=== PATIENT | female | born 1940 | race Caucasian/White ===

== ENCOUNTER 2017-02-24 11:21 | Inpatient (IN) | payer MEDICARE, BC ==
[2017-02-24] MEDS ORDERED: Ondansetron 4 MG Tab.DIS PO PRN (16:00)
[2017-02-24] MEDS ORDERED: Polyvinyl Alcohol 1.4% Ophth Soln 15 ML Bottle EYEBOTH PRN (16:00)
--- NOTE | 2017-02-24 16:28 | PCM.HP ---
H&P History of Present Illness - General Date of Service: 02/24/17 Admit Problem/Dx: Admission Diagnosis/Problem Admission Diagnosis/Problem Spondylolisthesis Source of Information: Patient, EMS History Limitations: Reports: No Limitations - History of Present Illness Initial Comments - Free Text/Narative: Patient had L4-S1 posterior lumbar interbody fusion with Dimas Vazquez osteotomies for a known diagnosis of spondylolistheses of lumbar region. Patient had a durotomy during surgery and no problems withe the wound. Incision is dry and intact. Location: Reports: Back Quality: Reports: Sharp Severity: Moderate Improves with: Reports: Immobilization, Medication - Related Data Allergies/Adverse Reactions: Allergies Allergy/AdvReac Type Severity Reaction Status Date / Time No Known Allergies Allergy Verified 02/24/17 12:42 Home Medications: Home Meds Acetaminophen 1,000 mg PO Q4H PRN 02/24/17 [History] Aspirin [Halfprin] 81 mg PO QPM 02/24/17 [History] Calcium Carbonate/Vitamin D3 [Calcium 600-Vit D3 400 Tablet] 2 tab PO DAILY 08/31 [History] Cyanocobalamin (Vitamin B12) [Vitamin B12] 1,000 mcg IM ASDIRECTED 02/24/17 [ History] Diazepam [Valium] 5 mg PO TID 02/24/17 [History] Docusate Sodium [Colace] 100 mg PO BID 02/24/17 [History] Flaxseed Oil [Flaxseed] 1,000 mg PO DAILY 02/24/17 [History] Glucosamine/Chondro Gatica A [Glucosamine-Chondroitin Tab] 1 each PO DAILY 02/24/17 [History] Krill/Om-3/DHA/EPA/Phospho/Ast [Krill Oil 1,000 mg Softgel] 1 each PO DAILY 08/31 [History] Levothyroxine 175 mcg PO ACBRK 02/24/17 [History] PEG 400/Hypromellose/Glycerin [Artificial Tears Drops] 1 drop EYEBOTH Q6H PRN [History] Pregabalin [Lyrica] 75 mg PO BID 02/24/17 [History] Ubidecarenone [Co Q-10] 100 mg PO DAILY 02/24/17 [History] cycloSPORINE [Restasis] 1 drop EYEBOTH BID 02/24/17 [History] oxyCODONE HCl [Oxycodone HCl] 10 mg PO Q4H PRN 02/24/17 [History] Past Medical History Other HEENT History: dry eye syndrome, migraines Cardiovascular History: Reports: Heart Murmur, Other (See Below) (hyperlipidemia ) Musculoskeletal History: Reports: Fibromyalgia, Osteoarthritis Endocrine/Metabolic History: Reports: Hypothyroidism Hematologic History: Reports: B12 Deficiency - Past Surgical History HEENT Surgical History: Reports: Oral Surgery, Tonsillectomy Other HEENT Surgeries/Procedures: three cornea transplants, parotid gland surgery, TMG joint surgery times three with replacement GI Surgical History: Reports: Appendectomy Female Surgical History: Reports: Tubal Ligation Other Musculoskeletal Surgeries/Procedures:: left knee scope, bilat hand surgery , hip replacement, bilat carpal tunnel surgery Social & Family History - Family History Cardiac: Reports: CAD - Tobacco Use Smoking Status *Q: Never Smoker - Living Situation & Occupation Living situation: Reports: 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[employer]) H&P Review of Systems - Review of Systems: Review Of Systems: See Below General: Reports: Weakness, Fatigue HEENT: Reports: No Symptoms Pulmonary: Reports: No Symptoms Cardiovascular: Reports: No Symptoms Gastrointestinal: Reports: Constipation Genitourinary: Reports: No Symptoms Musculoskeletal: Reports: Back Pain, Muscle Pain Skin: Reports: No Symptoms Psychiatric: Reports: No Symptoms Neurological: Reports: No Symptoms Hematologic/Lymphatic: Reports: Anemia (post op anemia) Immunologic: Reports: No Symptoms Exam - Exam Exam: See Below - Exam Quality Assessment: DVT Prophylaxis General: Alert, Oriented, Cooperative HEENT: Conjunctiva Clear, EACs Clear, EOMI, Hearing Intact, Mucosa Moist & [place] , Nares Patent, Normal Nasal Septum, Posterior Pharynx Clear Neck: Supple, Trachea Midline Lungs: Clear to Auscultation, Normal Respiratory Effort Cardiovascular: Regular Rate, Regular Rhythm, Normal S1, Normal S2, Systolic Murmur Abdomen: Normal Bowel Sounds, Soft, Pelvis Stable Back Exam: Normal Inspection Extremities: Edema (trace pedal edema to bilat LE) Peripheral Pulses: 1+: Posterior Tibial (L), Posterior Tibial (R), Dorsalis Pedis (L), Dorsalis Pedis (R) Skin: Warm, Dry, Intact, Incision, Other (incision to low back dry and intact with dermabond) Neurological: Cranial Nerves Intact, Reflexes Equal Bilateral, Strength Equal Bilateral Neuro Extensive - Mental Status: Alert, Oriented x3, Normal Mood/Affect, Normal Cognition, Memory Intact Neuro Extensive - Motor, Sensory, Reflexes: Normal Gait, Normal Reflexes Psychiatric: Alert, Normal Affect, Normal Mood *Q Meaningful Use (ADM) - VTE *Q VTE Criteria *Q: - Stroke *Q Stroke Criteria *Q: - AMI *Q AMI Criteria *Q: - Problem List (1) Spondylolisthesis SNOMED Code(s): 396833625 ICD Code: M43.10 - SPONDYLOLISTHESIS, SITE UNSPECIFIED Status: Acute Qualifiers: Spinal region: lumbosacral Qualified Code(s): M43.17 - Spondylolisthesis, lumbosacral region (2) Hypothyroidism SNOMED Code(s): 55252544 ICD Code: E03.9 - HYPOTHYROIDISM, UNSPECIFIED Status: Acute Qualifiers: Hypothyroidism type: other Qualified Code(s): E03.8 - Other specified hypothyroidism Problem List Initiated/Reviewed/Updated: Yes Orders Last 24hrs: Active Orders 24 hr Category Date Time Status Patient Status [ADT] Routine ADT 02/24/17 15:31 Active Ambulate [RC] ASDIRECTED Care 02/24/17 15:31 Active Ambulate [RC] ASDIRECTED Care 02/24/17 15:31 Active Antiembolic Devices [RC] PER UNIT ROUTINE Care 02/24/17 15:35 Active Communication Order [RC] ROUTINE Care 02/24/17 16:22 Ordered Intake and Output [RC] ASDIRECTED Care 02/24/17 15:31 Active May Shower [RC] ASDIRECTED Care 02/24/17 15:31 Active Oxygen Therapy [RC] PRN Care 02/24/17 15:31 Active Up ad Jeimy [RC] ASDIRECTED Care 02/24/17 15:31 Active VTE/DVT Education [RC] PER UNIT ROUTINE Care 02/24/17 15:31 Active Vital Signs [RC] PER UNIT ROUTINE Care 02/24/17 15:31 Active Consult to Case Management [CONS] Routine Cons 02/24/17 15:31 Active OT Evaluation and Treatment [CONS] Routine Cons 02/24/17 15:31 Active PT Evaluation and Treatment [CONS] Routine Cons 02/24/17 15:31 Active Regular Diet [DIET] Diet 02/24/17 Dinner Active Acetaminophen [Tylenol Extra Strength] Med 02/24/17 16:18 Ordered 1,000 mg PO Q4H PRN Aspirin [Halfprin] Med 02/24/17 18:00 Ordered 81 mg PO QPM Calcium Carbonate/Vitamin D3 [Caltrate 600+D 1500 MG- Med 02/25/17 08:00 Ordered 400 Units] 2 tab PO DAILY Diazepam [Valium] Med 02/24/17 16:18 Ordered 5 mg PO TID PRN Docusate Sodium [Colace] Med 02/24/17 18:00 Ordered 100 mg PO BID Flaxseed Oil Med 02/25/17 08:00 Ordered 1,000 mg PO DAILY Glucosamine/Chondro Gatica A [Glucosamine-Chondroitin Tab] Med 02/25/17 08:00 Ordered 1 each PO DAILY Krill/Om-3/DHA/EPA/Phospho/Ast [Krill Oil 1,000 mg Med 02/25/17 08:00 Ordered Softgel] 1 each PO DAILY Levothyroxine Med 02/25/17 07:00 Ordered 175 mcg PO ACBRK Ondansetron [Zofran ODT] Med 02/24/17 16:00 Active 4 mg PO Q6H PRN PEG 400/Hypromellose/Glycerin [Artificial Tears Drops] Med 02/24/17 16:18 Ordered 1 drop EYEBOTH Q6H PRN Polyethylene Glycol 3350 [MiraLAX] Med 02/24/17 16:22 Ordered 17 gm PO BEDTIME PRN Pregabalin [Lyrica] Med 02/24/17 18:00 Ordered 75 mg PO BID Ubidecarenone [Coenzyme Q10] Med 02/25/17 08:00 Ordered 100 mg PO DAILY cycloSPORINE [Restasis] Med 02/24/17 18:00 Ordered 1 drop EYEBOTH BID oxyCODONE HCl [Oxycodone HCl] Med 02/24/17 16:18 Ordered 10 mg PO Q4H PRN Antiembolic Hose [OM.PC] Routine Oth 02/24/17 15:31 Ordered Resuscitation Status Routine Resus Stat 02/24/17 15:31 Ordered Medication Orders Acetaminophen (Tylenol Extra Strength) 1,000 mg PO Q4H PRN PRN Reason: Pain Aspirin (Halfprin) 81 mg PO QPM [facility] Calcium Carbonate (Caltrate 600+D 1500 Mg-400 Units) 2 tab PO DAILY [facility] Coenzyme Q10 (Coenzyme Q10) 100 mg PO DAILY [facility] Diazepam (Valium.) 5 mg PO TID PRN PRN Reason: Spasms Docusate Sodium (Colace) 100 mg PO BID [facility] Flaxseed (Flaxseed Oil) 1,000 mg PO DAILY [facility] Levothyroxine Sodium (Levothyroxine) 175 mcg PO ACBRK [facility] Non-Formulary Medication (Glucosamine/Chondro Gatica A [Glucosamine-Chondroitin Tab] ) 1 each PO DAILY [facility] Non-Formulary Medication (Krill/Om-3/Dha/Epa/Phospho/Ast [Krill Oil 1,000 Mg Softgel]) 1 each PO DAILY [facility] Non-Formulary Medication (Peg 400/Hypromellose/Glycerin [Artificial Tears Drops] ) 1 drop EYEBOTH Q6H PRN PRN Reason: Dry Eyes Non-Formulary Medication (Cyclosporine [Restasis]) 1 drop EYEBOTH BID [facility] Non-Formulary Medication (Oxycodone Hcl [Oxycodone Hcl]) 10 mg PO Q4H PRN PRN Reason: Pain Ondansetron HCl (Zofran Odt) 4 mg PO Q6H PRN PRN Reason: Nausea/Vomiting Polyethylene Glycol (Miralax) 17 gm PO BEDTIME PRN PRN Reason: Constipation Pregabalin (Lyrica) 75 mg PO BID [facility] Assessment/Plan Comment:: 02/24/2017 Patient is needing further PT/OT after having L4-S1 lumbar fusion on 02/18/2017. Patient continues with back spasms and pain, needing oxycodone and Valium. Patient is wearing back brace to low back when out of bed, needing assistance with ADLs. Patient plans to return to home with spouse when stronger. will continue with recommendations and medications per neurosurgery. Recheck CBC in am, patient noted to have post op anemia. Continue with follow up appointments already set up. Leny Jain,NANCY
[2017-02-24] MEDS: Docusate Sodium 100 MG Cap PO SCH (17:46)
[2017-02-24] MEDS: Aspirin 81 MG Tab.EC PO SCH (17:46)
[2017-02-24] MEDS: Pregabalin 75 MG Cap PO SCH (17:47)
[2017-02-24] MEDS: oxyCODONE 5 MG Tab PO PRN ×2 (17:48→22:23)
[2017-02-24] MEDS: Diazepam 5 MG Tab PO PRN (17:48)
[2017-02-25] MEDS: oxyCODONE 5 MG Tab PO PRN ×3 (07:53→17:34)
[2017-02-25] MEDS: Calcium Carbonate/Vitamin D3 1500 MG-400 Units Tab PO SCH (07:53)
[2017-02-25] MEDS: Chondroitin/Glucosamine Cap PO SCH (07:54)
[2017-02-25] MEDS: Docusate Sodium 100 MG Cap PO SCH ×2 (07:54→17:34)
[2017-02-25] MEDS: Pregabalin 75 MG Cap PO SCH ×2 (07:55→17:34)
[2017-02-25] MEDS: Flaxseed Oil 1,000 MG Cap PO SCH ×2 (07:58→09:47)
[2017-02-25] MEDS: CYCLOSPORINE EYEBOTH SCH ×2 (09:48→17:36)
[2017-02-25] MEDS: Acetaminophen 500 MG Tab PO PRN (11:18)
[2017-02-25] MEDS: [UNRECOGNIZED DRUG - OTHER] PO SCH (14:06)
[2017-02-25] MEDS: AST PO SCH (14:06)
[2017-02-25] MEDS: PHOSPHO PO SCH (14:06)
[2017-02-25] MEDS: KRILL PO SCH (14:06)
[2017-02-25] MEDS: DHA PO SCH (14:06)
[2017-02-25] MEDS: EPA PO SCH (14:06)
[2017-02-25] MEDS: Diazepam 5 MG Tab PO PRN (17:34)
[2017-02-25] MEDS: Polyethylene Glycol 3350 Powder 510 GM Bot PO PRN (17:34)
[2017-02-25] MEDS: Aspirin 81 MG Tab.EC PO SCH (17:37)
[2017-02-26] MEDS: oxyCODONE 5 MG Tab PO PRN ×3 (00:54→13:28)
[2017-02-26] MEDS: Diazepam 5 MG Tab PO PRN (01:49)
[2017-02-26] MEDS ORDERED: Magnesium Hydroxide 400 MG/5 ML Susp 30 ML Cup PO PRN (07:30)
[2017-02-26] MEDS: Calcium Carbonate/Vitamin D3 1500 MG-400 Units Tab PO SCH ×3 (07:57→17:22)
[2017-02-26] MEDS: AST PO SCH (07:58)
[2017-02-26] MEDS: DHA PO SCH (07:58)
[2017-02-26] MEDS: KRILL PO SCH (07:58)
[2017-02-26] MEDS: Flaxseed Oil 1,000 MG Cap PO SCH (07:58)
[2017-02-26] MEDS: PHOSPHO PO SCH (07:58)
[2017-02-26] MEDS: CYCLOSPORINE EYEBOTH SCH ×2 (07:58→17:29)
[2017-02-26] MEDS: EPA PO SCH (07:58)
[2017-02-26] MEDS: Chondroitin/Glucosamine Cap PO SCH (07:58)
[2017-02-26] MEDS: [UNRECOGNIZED DRUG - OTHER] PO SCH (07:58)
[2017-02-26] MEDS: Pregabalin 75 MG Cap PO SCH ×2 (07:59→17:30)
[2017-02-26] MEDS: Docusate Sodium 100 MG Cap PO SCH ×2 (08:01→17:28)
[2017-02-26] MEDS ORDERED: Bisacodyl 10 MG Supp RECTAL PRN (08:26)
--- NOTE | 2017-02-26 09:09 | PCM.PN ---
- General Info Date of Service: 02/26/17 Admission Dx/Problem (Free Text): Admission Diagnosis/Problem Admission Diagnosis/Problem Spondylolisthesis Functional Status: Reports: tolerating diet, ambulating - Review of Systems General: Reports: Weakness, Fatigue HEENT: Reports: no symptoms Pulmonary: Reports: no symptoms Cardiovascular: Reports: No Symptoms Gastrointestinal: Reports: Constipation Genitourinary: Reports: no symptoms Musculoskeletal: Reports: back pain Skin: Reports: no symptoms Neurological: Reports: No Symptoms Psychiatric: Reports: no symptoms - Patient Data Vitals - most recent: Last Vital Signs Temp 96.8 F 02/25/17 15:31 Pulse 87 02/25/17 15:31 Resp 17 02/25/17 15:31 BP 107/59 L 02/25/17 15:31 Pulse Ox 95 02/25/17 15:31 Weight - most recent: 199 lb 11.186 oz Med Orders - Current: Current Medications Acetaminophen (Tylenol Extra Strength) 1,000 mg PO Q4H PRN PRN Reason: Pain Last Admin: 02/25/17 11:18 Dose: 1,000 mg Artificial Tears (Liquitears 1.4% Ophth Soln) 1 ml EYEBOTH Q6H PRN PRN Reason: Dry Eyes Aspirin (Halfprin) 81 mg PO QPM [facility] Last Admin: 02/25/17 17:37 Dose: 81 mg Bisacodyl (Dulcolax) 10 mg RECTAL DAILY PRN PRN Reason: Constipation Calcium Carbonate (Caltrate 600+D 1500 Mg-400 Units) 2 tab PO DAILY@1800 [facility] Coenzyme Q10 (Coenzyme Q10) 100 mg PO DAILY [facility] Last Admin: 02/26/17 07:58 Dose: 100 mg Diazepam (Valium.) 5 mg PO TID PRN PRN Reason: Spasms Last Admin: 02/26/17 01:49 Dose: 5 mg Docusate Sodium (Colace) 100 mg PO BID [facility] Last Admin: 02/26/17 08:01 Dose: 100 mg Flaxseed (Flaxseed Oil) 1,000 mg PO DAILY [facility] Last Admin: 02/26/17 07:58 Dose: 1,000 mg Glucosamine/Chondroitin (Glucosamine-Chondroitin 500-400 Capsule) 1 cap PO DAILY [facility] Last Admin: 02/26/17 07:58 Dose: 1 cap Levothyroxine Sodium (Levothyroxine) 175 mcg PO ACBRK [facility] Last Admin: 02/26/17 07:25 Dose: 175 mcg Magnesium Hydroxide (Milk Of Magnesia) 30 ml PO DAILY PRN PRN Reason: Constipation Last Admin: 02/26/17 07:59 Dose: 30 ml Krill/Om-3/Dha/Epa/Phospho/Ast [Krill Oil] 350mg Softgels 1 each PO DAILY [facility] Last Admin: 02/26/17 07:58 Dose: 1 each Cyclosporine [ Restasis] Ophth Emulsion 1 drop EYEBOTH BID [facility] Last Admin: 02/26/17 07:58 Dose: 1 drop Ondansetron HCl (Zofran Odt) 4 mg PO Q6H PRN PRN Reason: Nausea/Vomiting Oxycodone HCl (Oxycodone) 10 mg PO Q4H PRN PRN Reason: Pain Last Admin: 02/26/17 07:27 Dose: 10 mg Polyethylene Glycol (Miralax) 17 gm PO BEDTIME PRN PRN Reason: Constipation Last Admin: 02/25/17 17:34 Dose: 17 gm Pregabalin (Lyrica) 75 mg PO BID [facility] Last Admin: 02/26/17 07:59 Dose: 75 mg Senna/Docusate Sodium (Senna Plus) 1 tab PO BID [facility] Discontinued Medications Calcium Carbonate (Caltrate 600+D 1500 Mg-400 Units) 2 tab PO DAILY [facility] Last Admin: 02/26/17 08:04 Dose: Not Given - Exam General: alert, oriented, cooperative, no acute distress HEENT: Pupils equal, Pupils reactive Neck: supple Lungs: Clear to auscultation, Normal respiratory effort Cardiovascular: Regular Rate, Regular Rhythm Abdomen: bowel sounds present, soft, no tenderness, no distension Extremities: no edema Peripheral Pulses: 1+: Dorsalis Pedis (L), Dorsalis Pedis (R) Skin: warm, dry, intact Wound/Incisions: healing well, dressing dry and intact, no drainage Neurological: no new focal deficit Psy/Mental Status: alert, normal affect, normal mood - Problem List & Annotations (1) Spondylolisthesis SNOMED Code(s): 750352399 Code(s): M43.10 - SPONDYLOLISTHESIS, SITE UNSPECIFIED Status: Acute Current Visit: Yes Qualifiers: Spinal region: lumbosacral Qualified Code(s): M43.17 - Spondylolisthesis, lumbosacral region (2) Hypothyroidism SNOMED Code(s): 68206644 Code(s): E03.9 - HYPOTHYROIDISM, UNSPECIFIED Status: Acute Current Visit : Yes Qualifiers: Hypothyroidism type: other Qualified Code(s): E03.8 - Other specified hypothyroidism - Problem List Review Problem List Initiated/Reviewed/Updated: Yes - My Orders Last 24 Hours: My Active Orders 02/28/17 05:11 CBC WITH AUTO DIFF [HEME] Routine - Plan Plan:: 02/24/2017 Patient is needing further PT/OT after having L4-S1 lumbar fusion on 02/18/2017. Patient continues with back spasms and pain, needing oxycodone and Valium. Patient is wearing back brace to low back when out of bed, needing assistance with ADLs. Patient plans to return to home with spouse when stronger. will continue with recommendations and medications per neurosurgery. Recheck CBC in am, patient noted to have post op anemia. Continue with follow up appointments already set up. Leny Jain CNP 02/26/2017 Patient continues with back spasms and feels as it limits her in physical therapy. having issues with constipation, on stool softeners but wanting to take senna which she was on at home. Patient gets anxious with movement due to the back spasms. Discussed scheduled Valium, patient agreed and felt that would also help her with her anxiousness. Patient will monitor for drowsiness from the Valium. Will change stool softeners. Continue with physical therapy. Recheck CBC on 02/28/2017. Leny Jain CNP
[2017-02-26] MEDS: Diazepam 5 MG Tab PO SCH ×2 (12:02→17:31)
[2017-02-26] MEDS: Aspirin 81 MG Tab.EC PO SCH (17:29)
[2017-02-26] MEDS: Non-Formulary Medication 1 Each (Cyclosporine [Restasis] 1 DROP) EYEBOTH SCH (20:10)
[2017-02-26] MEDS: Polyethylene Glycol 3350 Powder 510 GM Bot PO PRN (20:11)
[2017-02-26] MEDS: Acetaminophen 500 MG Tab PO PRN (21:53)
[2017-02-27] MEDS: oxyCODONE 5 MG Tab PO PRN (01:33)
[2017-02-27] MEDS: Non-Formulary Medication 1 Each (Cyclosporine [Restasis] 1 DROP) EYEBOTH SCH ×2 (07:26→20:17)
[2017-02-27] MEDS: Docusate Sodium 100 MG Cap PO SCH ×2 (08:01→17:46)
[2017-02-27] MEDS: Flaxseed Oil 1,000 MG Cap PO SCH (08:01)
[2017-02-27] MEDS: DHA PO SCH (08:02)
[2017-02-27] MEDS: AST PO SCH (08:02)
[2017-02-27] MEDS: EPA PO SCH (08:02)
[2017-02-27] MEDS: KRILL PO SCH (08:02)
[2017-02-27] MEDS: [UNRECOGNIZED DRUG - OTHER] PO SCH (08:02)
[2017-02-27] MEDS: PHOSPHO PO SCH (08:02)
[2017-02-27] MEDS: Pregabalin 75 MG Cap PO SCH ×2 (08:03→17:48)
[2017-02-27] MEDS: Diazepam 5 MG Tab PO SCH ×3 (08:04→17:48)
[2017-02-27] MEDS: Acetaminophen 500 MG Tab PO PRN (14:35)
[2017-02-27] MEDS: Calcium Carbonate/Vitamin D3 1500 MG-400 Units Tab PO SCH (17:45)
[2017-02-27] MEDS: Aspirin 81 MG Tab.EC PO SCH (17:46)
[2017-02-28] MEDS: oxyCODONE 5 MG Tab PO PRN ×4 (01:21→22:08)
[2017-02-28] MEDS: Non-Formulary Medication 1 Each (Cyclosporine [Restasis] 1 DROP) EYEBOTH SCH ×2 (07:35→19:31)
[2017-02-28] MEDS: Docusate Sodium 100 MG Cap PO SCH ×2 (07:57→17:43)
[2017-02-28] MEDS: Flaxseed Oil 1,000 MG Cap PO SCH (07:57)
[2017-02-28] MEDS: Pregabalin 75 MG Cap PO SCH ×2 (07:58→17:43)
[2017-02-28] MEDS: DHA PO SCH (07:59)
[2017-02-28] MEDS: KRILL PO SCH (07:59)
[2017-02-28] MEDS: PHOSPHO PO SCH (07:59)
[2017-02-28] MEDS: AST PO SCH (07:59)
[2017-02-28] MEDS: EPA PO SCH (07:59)
[2017-02-28] MEDS: [UNRECOGNIZED DRUG - OTHER] PO SCH (07:59)
[2017-02-28] MEDS: Diazepam 5 MG Tab PO SCH ×3 (08:00→17:44)
[2017-02-28] MEDS ORDERED: Magnesium Citrate Solution 296 ML Bottle PO ONE (09:00)
[2017-02-28] MEDS: Aspirin 81 MG Tab.EC PO SCH (17:43)
[2017-02-28] MEDS: Calcium Carbonate/Vitamin D3 1500 MG-400 Units Tab PO SCH (17:43)
[2017-03-01] MEDS: Non-Formulary Medication 1 Each (Cyclosporine [Restasis] 1 DROP) EYEBOTH SCH ×2 (07:05→19:56)
[2017-03-01] MEDS: Flaxseed Oil 1,000 MG Cap PO SCH (07:52)
[2017-03-01] MEDS: Docusate Sodium 100 MG Cap PO SCH ×2 (07:52→17:13)
[2017-03-01] MEDS: EPA PO SCH (07:53)
[2017-03-01] MEDS: [UNRECOGNIZED DRUG - OTHER] PO SCH (07:53)
[2017-03-01] MEDS: PHOSPHO PO SCH (07:53)
[2017-03-01] MEDS: DHA PO SCH (07:53)
[2017-03-01] MEDS: KRILL PO SCH (07:53)
[2017-03-01] MEDS: AST PO SCH (07:53)
[2017-03-01] MEDS: Pregabalin 75 MG Cap PO SCH ×2 (07:58→17:13)
[2017-03-01] MEDS: Diazepam 5 MG Tab PO SCH ×3 (08:04→19:56)
[2017-03-01] MEDS: oxyCODONE 5 MG Tab PO PRN ×3 (08:09→22:00)
[2017-03-01] MEDS: Calcium Carbonate/Vitamin D3 1500 MG-400 Units Tab PO SCH (17:12)
[2017-03-01] MEDS: Aspirin 81 MG Tab.EC PO SCH (17:13)
[2017-03-02] MEDS: oxyCODONE 5 MG Tab PO PRN ×3 (06:55→20:42)
[2017-03-02] MEDS: Non-Formulary Medication 1 Each (Cyclosporine [Restasis] 1 DROP) EYEBOTH SCH ×2 (07:03→20:45)
[2017-03-02] MEDS: Docusate Sodium 100 MG Cap PO SCH ×2 (08:02→17:12)
[2017-03-02] MEDS: AST PO SCH (08:03)
[2017-03-02] MEDS: DHA PO SCH (08:03)
[2017-03-02] MEDS: [UNRECOGNIZED DRUG - OTHER] PO SCH (08:03)
[2017-03-02] MEDS: Flaxseed Oil 1,000 MG Cap PO SCH (08:03)
[2017-03-02] MEDS: KRILL PO SCH (08:03)
[2017-03-02] MEDS: PHOSPHO PO SCH (08:03)
[2017-03-02] MEDS: EPA PO SCH (08:03)
[2017-03-02] MEDS: Diazepam 5 MG Tab PO SCH ×2 (08:03→20:42)
[2017-03-02] MEDS: Pregabalin 75 MG Cap PO SCH ×2 (08:04→17:13)
[2017-03-02] MEDS: Calcium Carbonate/Vitamin D3 1500 MG-400 Units Tab PO SCH (17:12)
[2017-03-02] MEDS: Aspirin 81 MG Tab.EC PO SCH (17:12)
[2017-03-03] MEDS: oxyCODONE 5 MG Tab PO PRN ×2 (03:04→14:50)
[2017-03-03] MEDS: AST PO SCH (08:10)
[2017-03-03] MEDS: DHA PO SCH (08:10)
[2017-03-03] MEDS: EPA PO SCH (08:10)
[2017-03-03] MEDS: [UNRECOGNIZED DRUG - OTHER] PO SCH (08:10)
[2017-03-03] MEDS: Docusate Sodium 100 MG Cap PO SCH ×2 (08:10→18:20)
[2017-03-03] MEDS: PHOSPHO PO SCH (08:10)
[2017-03-03] MEDS: KRILL PO SCH (08:10)
[2017-03-03] MEDS: Non-Formulary Medication 1 Each (Cyclosporine [Restasis] 1 DROP) EYEBOTH SCH ×2 (08:11→19:15)
[2017-03-03] MEDS: Flaxseed Oil 1,000 MG Cap PO SCH (08:12)
[2017-03-03] MEDS: Pregabalin 75 MG Cap PO SCH ×2 (08:13→18:21)
[2017-03-03] MEDS: Diazepam 5 MG Tab PO SCH ×2 (08:13→19:13)
[2017-03-03] MEDS: Aspirin 81 MG Tab.EC PO SCH (18:20)
[2017-03-03] MEDS: Calcium Carbonate/Vitamin D3 1500 MG-400 Units Tab PO SCH (18:20)
[2017-03-04] MEDS: oxyCODONE 5 MG Tab PO PRN ×4 (00:20→22:29)
[2017-03-04] MEDS: Docusate Sodium 100 MG Cap PO SCH ×2 (07:56→17:32)
[2017-03-04] MEDS: Non-Formulary Medication 1 Each (Cyclosporine [Restasis] 1 DROP) EYEBOTH SCH ×2 (07:57→20:10)
[2017-03-04] MEDS: [UNRECOGNIZED DRUG - OTHER] PO SCH (07:58)
[2017-03-04] MEDS: EPA PO SCH (07:58)
[2017-03-04] MEDS: Flaxseed Oil 1,000 MG Cap PO SCH (07:58)
[2017-03-04] MEDS: DHA PO SCH (07:58)
[2017-03-04] MEDS: PHOSPHO PO SCH (07:58)
[2017-03-04] MEDS: KRILL PO SCH (07:58)
[2017-03-04] MEDS: AST PO SCH (07:58)
[2017-03-04] MEDS: Pregabalin 75 MG Cap PO SCH ×2 (07:59→17:33)
[2017-03-04] MEDS: Diazepam 5 MG Tab PO SCH ×2 (08:00→20:04)
[2017-03-04] MEDS: Aspirin 81 MG Tab.EC PO SCH (17:32)
[2017-03-04] MEDS: Calcium Carbonate/Vitamin D3 1500 MG-400 Units Tab PO SCH (17:32)
--- NOTE | 2017-03-04 19:28 | PCM.PN ---
- General Info Date of Service: 03/04/17 Admission Dx/Problem (Free Text): Admission Diagnosis/Problem Admission Diagnosis/Problem Spondylolisthesis Functional Status: Reports: other (still with episodes of severe pain but medication does help ) - Review of Systems General: Reports: Night Sweats (last night only) HEENT: Reports: no symptoms Pulmonary: Reports: no symptoms Cardiovascular: Reports: No Symptoms Gastrointestinal: Reports: Constipation (improving) Genitourinary: Reports: incontinence (improving) Musculoskeletal: Reports: back pain Skin: Reports: no symptoms Neurological: Reports: Numbness (right lateral foot, left medial foot) Psychiatric: Reports: no symptoms - Patient Data Vitals - most recent: Last Vital Signs Temp 98.2 F 03/04/17 08:00 Pulse 87 03/04/17 08:00 Resp 17 03/04/17 08:00 BP 119/59 L 03/04/17 08:00 Pulse Ox 96 03/04/17 08:00 Weight - most recent: 192 lb 12.8 oz I&O - last 24 hours: Intake & Output 03/04/17 03/04/17 03/04/17 06:59 14:59 22:59 Intake Total 200 Balance 200 Med Orders - Current: Current Medications Acetaminophen (Tylenol Extra Strength) 1,000 mg PO Q4H PRN PRN Reason: Pain Last Admin: 02/27/17 14:35 Dose: 1,000 mg Artificial Tears (Liquitears 1.4% Ophth Soln) 1 ml EYEBOTH Q6H PRN PRN Reason: Dry Eyes Aspirin (Halfprin) 81 mg PO QPM [facility] Last Admin: 03/04/17 17:32 Dose: 81 mg Bisacodyl (Dulcolax) 10 mg RECTAL DAILY PRN PRN Reason: Constipation Last Admin: 02/26/17 09:28 Dose: 10 mg Calcium Carbonate (Caltrate 600+D 1500 Mg-400 Units) 2 tab PO DAILY@1800 [facility] Last Admin: 03/04/17 17:32 Dose: 2 tab Coenzyme Q10 (Coenzyme Q10) 100 mg PO DAILY [facility] Last Admin: 03/04/17 07:56 Dose: 100 mg Cyanocobalamin (Vitamin B12) 1,000 mcg IM Q30D [facility] Diazepam (Valium.) 5 mg PO Q12H [facility] Last Admin: 03/04/17 08:00 Dose: 5 mg Docusate Sodium (Colace) 100 mg PO BID [facility] Last Admin: 03/04/17 17:32 Dose: 100 mg Flaxseed (Flaxseed Oil) 1,000 mg PO DAILY [facility] Last Admin: 03/04/17 07:58 Dose: 1,000 mg Levothyroxine Sodium (Levothyroxine) 175 mcg PO ACBRK [facility] Last Admin: 03/04/17 06:58 Dose: 175 mcg Magnesium Hydroxide (Milk Of Magnesia) 30 ml PO DAILY PRN PRN Reason: Constipation Last Admin: 02/26/17 07:59 Dose: 30 ml Krill/Om-3/Dha/Epa/Phospho/Ast [Krill Oil] 350mg Softgels 1 each PO DAILY [facility] Last Admin: 03/04/17 07:58 Dose: 1 each Non-Formulary Medication (Cyclosporine [Restasis]) 1 drop EYEBOTH Q12HR [facility] Last Admin: 03/04/17 07:57 Dose: 1 drop Ondansetron HCl (Zofran Odt) 4 mg PO Q6H PRN PRN Reason: Nausea/Vomiting Oxycodone HCl (Oxycodone) 10 mg PO Q4H PRN PRN Reason: Pain Last Admin: 03/04/17 14:10 Dose: 10 mg Polyethylene Glycol (Miralax) 17 gm PO BEDTIME PRN PRN Reason: Constipation Last Admin: 02/26/17 20:11 Dose: 17 gm Pregabalin (Lyrica) 75 mg PO BID [facility] Last Admin: 03/04/17 17:33 Dose: 75 mg Senna/Docusate Sodium (Senna Plus) 2 tab PO BID [facility] Last Admin: 03/04/17 17:34 Dose: 2 tab Discontinued Medications Calcium Carbonate (Caltrate 600+D 1500 Mg-400 Units) 2 tab PO DAILY [facility] Last Admin: 02/26/17 08:04 Dose: Not Given Diazepam (Valium.) 5 mg PO TID PRN PRN Reason: Spasms Last Admin: 02/26/17 01:49 Dose: 5 mg Diazepam (Valium.) 5 mg PO TID [facility] Last Admin: 03/01/17 11:59 Dose: Not Given Glucosamine/Chondroitin (Glucosamine-Chondroitin 500-400 Capsule) 1 cap PO DAILY [facility] Last Admin: 02/26/17 07:58 Dose: 1 cap Magnesium Citrate (Citrate Of Magnesia) 296 ml PO ONETIME ONE Stop: 02/28/17 09:01 Last Admin: 02/28/17 09:46 Dose: 296 ml Cyclosporine [ Restasis] Ophth Emulsion 1 drop EYEBOTH BID [facility] Last Admin: 02/26/17 07:58 Dose: 1 drop Senna/Docusate Sodium (Senna Plus) 1 tab PO BID [facility] Last Admin: 02/28/17 07:59 Dose: 1 tab - Exam General: alert, oriented, cooperative, no acute distress HEENT: Pupils equal, Pupils reactive, EOMI, Mucous membr. moist/pink Neck: trachea midline, no JVD Lungs: Clear to auscultation, Normal respiratory effort Cardiovascular: Regular Rate, Regular Rhythm Abdomen: bowel sounds present, soft, no tenderness, no distension (Female) Exam: Deferred Back Exam: Decreased Range of Motion Extremities: no edema Skin: warm, dry, intact Wound/Incisions: healing well, drainage (very minimal drainage at very superior end of incision where skin bubbled), erythema improving Neurological: no new focal deficit Psy/Mental Status: alert, normal affect, normal mood - Problem List & Annotations (1) Hypothyroidism SNOMED Code(s): 66627732 Code(s): E03.9 - HYPOTHYROIDISM, UNSPECIFIED Status: Acute Current Visit : Yes Qualifiers: Hypothyroidism type: other Qualified Code(s): E03.8 - Other specified hypothyroidism (2) Spondylolisthesis SNOMED Code(s): 997085516 Code(s): M43.10 - SPONDYLOLISTHESIS, SITE UNSPECIFIED Status: Acute Current Visit: Yes Qualifiers: Spinal region: lumbosacral Qualified Code(s): M43.17 - Spondylolisthesis, lumbosacral region - Problem List Review Problem List Initiated/Reviewed/Updated: Yes - Plan Plan:: 02/24/2017 Patient is needing further PT/OT after having L4-S1 lumbar fusion on 02/18/2017. Patient continues with back spasms and pain, needing oxycodone and Valium. Patient is wearing back brace to low back when out of bed, needing assistance with ADLs. Patient plans to return to home with spouse when stronger. will continue with recommendations and medications per neurosurgery. Recheck CBC in am, patient noted to have post op anemia. Continue with follow up appointments already set up. Leny Jain CNP 02/26/2017 Patient continues with back spasms and feels as it limits her in physical therapy. having issues with constipation, on stool softeners but wanting to take senna which she was on at home. Patient gets anxious with movement due to the back spasms. Discussed scheduled Valium, patient agreed and felt that would also help her with her anxiousness. Patient will monitor for drowsiness from the Valium. Will change stool softeners. Continue with physical therapy. Recheck CBC on 02/28/2017. Leny Jain CNP 03/04/17 Latonia Magana MD Had night sweats last night x1. Nurse was concerned about her incision. There was a small amount of drainage at very superior end of incision. Christine thinks bubble brace may be rubbing on this area of her back. Talked with nurse and Christine regarding padding/protection. Otherwise my opinion is incision is healing well with no evidence of infection. Christine also notes numbness of lateral right foot and medial left foot. Different from pre-op. Better bladder control and no bowel incontinence. She had one day of bilateral feet swelling but improved with leg elevation. Walking with walker. Still working with PT-OT.
[2017-03-05] MEDS: oxyCODONE 5 MG Tab PO PRN ×3 (03:29→17:17)
[2017-03-05] MEDS: Diazepam 5 MG Tab PO PRN ×2 (03:29→09:33)
[2017-03-05] MEDS: Non-Formulary Medication 1 Each (Cyclosporine [Restasis] 1 DROP) EYEBOTH SCH ×2 (07:07→19:23)
[2017-03-05 07:47] LABS: CHLORIDE,CL 104 mmol/L (98-107); SODIUM,NA 139 mmol/L (136-145)
[2017-03-05] MEDS: AST PO SCH (07:50)
[2017-03-05] MEDS: EPA PO SCH (07:50)
[2017-03-05] MEDS: DHA PO SCH (07:50)
[2017-03-05] MEDS: [UNRECOGNIZED DRUG - OTHER] PO SCH (07:50)
[2017-03-05] MEDS: KRILL PO SCH (07:50)
[2017-03-05] MEDS: PHOSPHO PO SCH (07:50)
[2017-03-05] MEDS: Pregabalin 75 MG Cap PO SCH ×2 (07:51→17:17)
[2017-03-05] MEDS: Flaxseed Oil 1,000 MG Cap PO SCH (07:51)
[2017-03-05] MEDS: Docusate Sodium 100 MG Cap PO SCH ×2 (07:51→17:19)
[2017-03-05] MEDS: Aspirin 81 MG Tab.EC PO SCH (17:19)
[2017-03-05] MEDS: Calcium Carbonate/Vitamin D3 1500 MG-400 Units Tab PO SCH (17:19)
[2017-03-05] MEDS: Diazepam 5 MG Tab PO SCH (19:24)
[2017-03-06] MEDS: oxyCODONE 5 MG Tab PO PRN ×2 (04:46→10:36)
[2017-03-06] MEDS: Flaxseed Oil 1,000 MG Cap PO SCH (07:30)
[2017-03-06] MEDS: Docusate Sodium 100 MG Cap PO SCH (07:30)
[2017-03-06] MEDS: Non-Formulary Medication 1 Each (Cyclosporine [Restasis] 1 DROP) EYEBOTH SCH (07:30)
[2017-03-06] MEDS: Pregabalin 75 MG Cap PO SCH (07:31)
[2017-03-06] MEDS: [UNRECOGNIZED DRUG - OTHER] PO SCH (07:31)
[2017-03-06] MEDS: PHOSPHO PO SCH (07:31)
[2017-03-06] MEDS: AST PO SCH (07:31)
[2017-03-06] MEDS: EPA PO SCH (07:31)
[2017-03-06] MEDS: KRILL PO SCH (07:31)
[2017-03-06] MEDS: DHA PO SCH (07:31)
[2017-03-06] MEDS ORDERED: Cyanocobalamin (Vitamin B12) 1,000 MCG/ML SDV IM SCH (08:00)
[2017-03-06 08:54] VITALS: BP 131/68
--- NOTE | 2017-03-06 12:40 | PCM.DCSUM1 ---
Discharge Summary - Hospital Course Free Text/Narrative:: Patient was admitted to [facility] for further PT/OT therapy after having extensive back surgery - Discharge Data Discharge Date: 03/05/17 Discharge Disposition: Home, W Home Health Agency 06 Condition: Fair - Discharge Diagnosis/Problem(s) (1) Spondylolisthesis SNOMED Code(s): 281079270 ICD Code: M43.10 - SPONDYLOLISTHESIS, SITE UNSPECIFIED Status: Acute Current Visit: Yes Qualifiers: Spinal region: lumbosacral Qualified Code(s): M43.17 - Spondylolisthesis, lumbosacral region (2) Hypothyroidism SNOMED Code(s): 72999532 ICD Code: E03.9 - HYPOTHYROIDISM, UNSPECIFIED Status: Acute Current Visit : Yes Qualifiers: Hypothyroidism type: other Qualified Code(s): E03.8 - Other specified hypothyroidism - Patient Summary/Data Consults: Consultations 02/24/17 15:31 Consult to Case Management [CONS] Routine OT Evaluation and Treatment [CONS] Routine PT Evaluation and Treatment [CONS] Routine - Patient Instructions Diet: Usual Diet as Tolerated Activity: As Tolerated Driving: Do Not Drive Showering/Bathing: May Shower, No Tub Bathing/Swimming Wound/Incision Care: Keep Operative Site/Wound Site Clean and Dry Notify Provider of: Fever, Swelling and Redness, Drainage - Discharge Plan Prescriptions/Med Rec: Diazepam [Valium] 5 mg PO BID PRN #30 tablet PRN Reason: Spasms Docusate Sodium/Sennosides [Senna Plus] 2 tab PO BID #120 tablet oxyCODONE HCl [Oxycodone HCl] 10 mg PO Q4H PRN #45 tablet PRN Reason: Pain Home Medications: Home Meds Acetaminophen 1,000 mg PO Q4H PRN 02/24/17 [History] Aspirin [Halfprin] 81 mg PO QPM 02/24/17 [History] Calcium Carbonate/Vitamin D3 [Calcium 600-Vit D3 400 Tablet] 2 tab PO DAILY 08/31 [History] Cyanocobalamin (Vitamin B12) [Vitamin B12] 1,000 mcg IM ASDIRECTED 02/24/17 [ History] Diazepam [Valium] 5 mg PO TID 02/24/17 [History] Docusate Sodium [Colace] 100 mg PO BID 02/24/17 [History] Flaxseed Oil [Flaxseed] 1,000 mg PO DAILY 02/24/17 [History] Glucosamine/Chondro Gatica A [Glucosamine-Chondroitin Tab] 1 each PO DAILY 02/24/17 [History] Krill/Om-3/DHA/EPA/Phospho/Ast [Krill Oil 1,000 mg Softgel] 1 each PO DAILY 08/31 [History] Levothyroxine 175 mcg PO ACBRK 02/24/17 [History] PEG 400/Hypromellose/Glycerin [Artificial Tears Drops] 1 drop EYEBOTH Q6H PRN [History] Pregabalin [Lyrica] 75 mg PO BID 02/24/17 [History] Ubidecarenone [Co Q-10] 100 mg PO DAILY 02/24/17 [History] cycloSPORINE [Restasis] 1 drop EYEBOTH BID 02/24/17 [History] Cyanocobalamin (Vitamin B12) [Vitamin B12] 1,000 mcg IM Q30D sdv 03/06/17 [Rx] Diazepam [Valium] 5 mg PO BID PRN #30 tablet 03/06/17 [Rx] Docusate Sodium/Sennosides [Senna Plus] 2 tab PO BID #120 tablet 03/06/17 [Rx] oxyCODONE HCl [Oxycodone HCl] 10 mg PO Q4H PRN #45 tablet 03/06/17 [Rx] - Discharge Summary/Plan Comment DC Time >30 min.: No Discharge Summary/Plan Comment: Patient is discharged to home with [facility] and physical therapy to see at home. Pain controlled with oxycodone and valium. Patient to continue with follow up appointment set up with neurosurgeon and wearing the back brace at all times when she is out of bed. Will collect CBC in two weeks. Patient will try to increase protein in her diet. Educated the patient on signs of infection. Leny greer CNP - Patient Data Vitals - Most Recent: Last Vital Signs Temp 97.2 F 03/06/17 08:00 Pulse 87 03/06/17 08:00 Resp 18 03/05/17 08:00 BP 131/68 03/06/17 08:00 Pulse Ox 87 L 03/06/17 08:00 Weight - Most Recent: 190 lb 9.6 oz Med Orders - Current: Current Medications Acetaminophen (Tylenol Extra Strength) 1,000 mg PO Q4H PRN PRN Reason: Pain Last Admin: 02/27/17 14:35 Dose: 1,000 mg Artificial Tears (Liquitears 1.4% Ophth Soln) 1 ml EYEBOTH Q6H PRN PRN Reason: Dry Eyes Aspirin (Halfprin) 81 mg PO QPM [facility] Last Admin: 03/05/17 17:19 Dose: 81 mg Bisacodyl (Dulcolax) 10 mg RECTAL DAILY PRN PRN Reason: Constipation Last Admin: 02/26/17 09:28 Dose: 10 mg Calcium Carbonate (Caltrate 600+D 1500 Mg-400 Units) 2 tab PO DAILY@1800 [facility] Last Admin: 03/05/17 17:19 Dose: 2 tab Coenzyme Q10 (Coenzyme Q10) 100 mg PO DAILY [facility] Last Admin: 03/06/17 07:30 Dose: 100 mg Cyanocobalamin (Vitamin B12) 1,000 mcg IM Q30D [facility] Last Admin: 03/06/17 07:32 Dose: 1,000 mcg Diazepam (Valium.) 5 mg PO BEDTIME [facility] Last Admin: 03/05/17 19:24 Dose: 5 mg Diazepam (Valium.) 5 mg PO QID PRN PRN Reason: Spasms Last Admin: 03/05/17 09:33 Dose: 5 mg Docusate Sodium (Colace) 100 mg PO BID [facility] Last Admin: 03/06/17 07:30 Dose: 100 mg Flaxseed (Flaxseed Oil) 1,000 mg PO DAILY [facility] Last Admin: 03/06/17 07:30 Dose: 1,000 mg Levothyroxine Sodium (Levothyroxine) 175 mcg PO ACBRK [facility] Last Admin: 03/06/17 06:48 Dose: 175 mcg Magnesium Hydroxide (Milk Of Magnesia) 30 ml PO DAILY PRN PRN Reason: Constipation Last Admin: 02/26/17 07:59 Dose: 30 ml Krill/Om-3/Dha/Epa/Phospho/Ast [Krill Oil] 350mg Softgels 1 each PO DAILY [facility] Last Admin: 03/06/17 07:31 Dose: 1 each Non-Formulary Medication (Cyclosporine [Restasis]) 1 drop EYEBOTH Q12HR [facility] Last Admin: 03/06/17 07:30 Dose: 1 drop Ondansetron HCl (Zofran Odt) 4 mg PO Q6H PRN PRN Reason: Nausea/Vomiting Oxycodone HCl (Oxycodone) 10 mg PO Q4H PRN PRN Reason: Pain Last Admin: 03/06/17 10:36 Dose: 10 mg Polyethylene Glycol (Miralax) 17 gm PO BEDTIME PRN PRN Reason: Constipation Last Admin: 02/26/17 20:11 Dose: 17 gm Pregabalin (Lyrica) 75 mg PO BID [facility] Last Admin: 03/06/17 07:31 Dose: 75 mg Senna/Docusate Sodium (Senna Plus) 2 tab PO BID [facility] Last Admin: 03/06/17 07:32 Dose: 2 tab Discontinued Medications Calcium Carbonate (Caltrate 600+D 1500 Mg-400 Units) 2 tab PO DAILY [facility] Last Admin: 02/26/17 08:04 Dose: Not Given Cyanocobalamin (Vitamin B12) 1,000 mcg IM Q30D [facility] Diazepam (Valium.) 5 mg PO TID PRN PRN Reason: Spasms Last Admin: 02/26/17 01:49 Dose: 5 mg Diazepam (Valium.) 5 mg PO TID [facility] Last Admin: 03/01/17 11:59 Dose: Not Given Diazepam (Valium.) 5 mg PO Q12H [facility] Last Admin: 03/04/17 08:00 Dose: 5 mg Glucosamine/Chondroitin (Glucosamine-Chondroitin 500-400 Capsule) 1 cap PO DAILY [facility] Last Admin: 02/26/17 07:58 Dose: 1 cap Magnesium Citrate (Citrate Of Magnesia) 296 ml PO ONETIME ONE Stop: 02/28/17 09:01 Last Admin: 02/28/17 09:46 Dose: 296 ml Cyclosporine [ Restasis] Ophth Emulsion 1 drop EYEBOTH BID [facility] Last Admin: 02/26/17 07:58 Dose: 1 drop Senna/Docusate Sodium (Senna Plus) 1 tab PO BID [facility] Last Admin: 02/28/17 07:59 Dose: 1 tab *Q Meaningful Use (DIS) - VTE *Q VTE Criteria *Q: - Stroke *Q Stroke Criteria *Q: - AMI *Q AMI Criteria *Q:
[2017-03-07] MEDS ORDERED: Cyanocobalamin (Vitamin B12) 1,000 MCG/ML SDV IM SCH (08:00)
== END 2017-03-06 13:20 | disposition home health service (06) | DRG 552 ==
LOC: LL.SWG 15:50
PROVIDERS: ADMIT Family Medicine; ATTEND Family Medicine
DX: M43.17 Spondylolisthesis, lumbosacral region (principal); Z98.890 Other specified postprocedural states; Z98.1 Arthrodesis status; M62.830 Muscle spasm of back; E53.8 Deficiency of other specified B group vitamins; E03.9 Hypothyroidism, unspecified; M19.90 Unspecified osteoarthritis, unspecified site; H04.129 Dry eye syndrome of unspecified lacrimal gland; F41.9 Anxiety disorder, unspecified; K59.00 Constipation, unspecified; Z79.82 Long term (current) use of aspirin
CPT/HCPCS: 36415; 80053; 85025; 86140; 97110-GO; 97110-GP; 97116-GP; 97140-GP; 97161-GP; 97165-GO; 97530-GO; 97530-GP; 97535-GO; A9270-GY; J3420

== ENCOUNTER 2017-03-15 09:34 | Emergency (ER) | payer MEDICARE, BC ==
[2017-03-15 09:51] VITALS: BP 129/74
--- NOTE | 2017-03-15 10:18 | EDM.PDOC ---
ED HPI GENERAL MEDICAL PROBLEM - General Chief Complaint: Genitourinary Problem Stated Complaint: urinary frequency Time Seen by Provider: 03/15/17 09:52 Source of Information: Reports: Patient History Limitations: Reports: No Limitations - History of Present Illness INITIAL COMMENTS - FREE TEXT/NARRATIVE: 2 day history of gradually worsening dysuria and frequency. Has some discomfort over bladder area at times. No hematuria. Patient says that she has not "felt quite right" with urination since her recent back surgery. She was admitted here during her recovery and spent some time on swing bed. Denies fevers/chills. Does not recall having lema cath while recovering in swing bed. No other complaints during ROS. Continues to recover from the recent surgery. Wears back brace/uses walker. Has some chronic constipation issues related to decreased activity and pain medications. Other Treatments [employer]ATOR: none - Related Data Allergies Allergy/AdvReac Type Severity Reaction Status Date / Time No Known Allergies Allergy Verified 03/15/17 09:55 Home Meds: Home Meds Acetaminophen 1,000 mg PO Q4H PRN 02/24/17 [History] Aspirin [Halfprin] 81 mg PO QPM 02/24/17 [History] Calcium Carbonate/Vitamin D3 [Calcium 600-Vit D3 400 Tablet] 2 tab PO DAILY 08/31 [History] Diazepam [Valium] 5 mg PO TID PRN 02/24/17 [History] Docusate Sodium [Colace] 100 mg PO BID 02/24/17 [History] Flaxseed Oil [Flaxseed] 1,000 mg PO DAILY 02/24/17 [History] Glucosamine/Chondro Gatica A [Glucosamine-Chondroitin Tab] 1 each PO DAILY 02/24/17 [History] Krill/Om-3/DHA/EPA/Phospho/Ast [Krill Oil 1,000 mg Softgel] 1 each PO DAILY 08/31 [History] Levothyroxine 175 mcg PO ACBRK 02/24/17 [History] PEG 400/Hypromellose/Glycerin [Artificial Tears Drops] 1 drop EYEBOTH Q6H PRN [History] Pregabalin [Lyrica] 75 mg PO BID 02/24/17 [History] Ubidecarenone [Co Q-10] 100 mg PO DAILY 02/24/17 [History] cycloSPORINE [Restasis] 1 drop EYEBOTH BID 02/24/17 [History] Cyanocobalamin (Vitamin B12) [Vitamin B12] 1,000 mcg IM Q30D sdv 03/06/17 [Rx] Docusate Sodium/Sennosides [Senna Plus] 2 tab PO BID #120 tablet 03/06/17 [Rx] oxyCODONE HCl [Oxycodone HCl] 10 mg PO Q4H PRN #45 tablet 03/06/17 [Rx] Amoxicillin [Amoxicillin] 2,000 mg PO ASDIRECTED PRN 03/15/17 [History] Past Medical History Other HEENT History: dry eye syndrome, migraines Cardiovascular History: Reports: Heart Murmur Gastrointestinal History: Reports: Chronic Constipation Musculoskeletal History: Reports: Back Pain, Chronic, Fibromyalgia, Osteoarthritis Other Musculoskeletal History: recent back surgery (02/15/2017) Endocrine/Metabolic History: Reports: Hypothyroidism Hematologic History: Reports: B12 Deficiency - Past Surgical History HEENT Surgical History: Reports: Oral Surgery, Tonsillectomy Other HEENT Surgeries/Procedures: three cornea transplants, parotid gland surgery, 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 ED EXAM, RENAL/ - Physical Exam Exam: See Below Exam Limited By: No Limitations General Appearance: Alert, WD/WN, No Apparent Distress Eye Exam: Bilateral Eye: EOMI, PERRL Ears: Hearing Grossly Normal Nose: No: Nasal Drainage Head: Atraumatic, Normocephalic Neck: Supple Respiratory/Chest: No Respiratory Distress, Lungs Clear, Normal Breath Sounds, No Accessory Muscle Use Cardiovascular: Regular Rate, Rhythm GI/Abdominal: Normal Bowel Sounds, Soft, Non-Tender, No Distention, No Mass (Female) Exam: Deferred Back Exam: Other (patient wearing support brace) Extremities: Normal Capillary Refill Neurological: Alert, Oriented, Normal Cognition Psychiatric: Normal Affect, Normal Mood Skin Exam: Warm, Dry, Intact, Normal Color Course - Vital Signs Last Recorded V/S: Last Vital Signs Temp 37.2 C 03/15/17 09:50 Pulse 96 03/15/17 09:50 Resp 20 03/15/17 09:50 BP 129/74 03/15/17 09:50 Pulse Ox 95 03/15/17 09:50 - Orders/Labs/Meds Labs: Laboratory Tests 03/15/17 Range/Units 09:36 Specimen Type Urinvoid Urine Color Light yellow Urine Appearance Clear Urine pH 6.5 (5.0-9.0) Ur Specific [place] 1.010 (1.005-1.030) Urine Protein Negative (NEGATIVE) mg/dL Urine Glucose (UA) Negative (NEGATIVE) mg/dL Urine Ketones Negative (NEGATIVE) mg/dL Urine Occult Blood Negative (NEGATIVE) Urine Nitrite Negative (NEGATIVE) Urine Bilirubin Negative (NEGATIVE) Urine Urobilinogen 0.2 (0.2-1.0) E.U./dL Ur Leukocyte Esterase Negative (NEGATIVE) Urine RBC 0-5 /HPF Urine WBC 0-5 /HPF Ur Epithelial Cells Few /LPF Urine Bacteria Not seen (NONE TO FEW) /HPF - Re-Assessments/Exams Free Text/Narrative Re-Assessment/Exam: 03/15/17 10:36 UA unremarkable. Discussed with patient and her daughter that there can be multiple causes for dysuria/frequency in addition to infection. Ultimately it was planned that the patient will use Macrobid and Pyridium over the weekend ( dispensed from ER) and see if symptoms improve. If they do, she is to extend the Macrobid treatment by picking up the rest of the Rx Friday at pharmacy. If symptoms do not improve, she is to follow up with her primary on Friday. They are to continue to watch for changes and follow up otherwise as needed. Patient and daughter are in agreement with the plan. Departure - Departure Time of Disposition: 10:15 Disposition: Home, Self-Care 01 Condition: Good Clinical Impression: Increased urinary frequency, Dysuria - Discharge Information Instructions: Nitrofurantoin tablets or capsules, Interstitial Cystitis, Phenazopyridine tablets, Urinary Tract Infection, Adult, [id number], Urinary Frequency, Adult, Dysuria Referrals: Leny Jain NP [Primary Care Provider] - Forms: ED Department Discharge Additional Instructions: See if symptoms improve after using Macrobid this weekend. If they do, sisal picker the rest of the prescription on Friday. If they do not improve, follow up with your local clinic for recheck and new urine specimen. Follow up otherwise as needed if problems develop.
== END 2017-03-15 10:40 | disposition home or self-care (01) ==
LOC: LL.ED 09:34 → SUPCPDRO 09:34 → LL.ED 10:40
DX: R30.0 Dysuria (principal); R35.0 Frequency of micturition; G43.909 Migraine, unspecified, not intractable, without status migrainosus; E03.9 Hypothyroidism, unspecified; M19.90 Unspecified osteoarthritis, unspecified site; Z79.82 Long term (current) use of aspirin; Z79.899 Other long term (current) drug therapy
CPT/HCPCS: 81001; 99283

== ENCOUNTER 2018-03-13 19:09 | Emergency (ER) | payer MEDICARE, BC ==
[2018-03-13 19:16] VITALS: BP 117/67
[2018-03-13 20:37] LABS: CHLORIDE,CL 99 mmol/L (98-107); SODIUM,NA 132 mmol/L (136-145)
[2018-03-13] MEDS ORDERED: Albuterol/Ipratropium 3.0-0.5 MG/3 ML Neb Soln NEB ONE (21:17)
--- NOTE | 2018-03-13 21:17 | EDM.PDOC ---
ED HPI GENERAL MEDICAL PROBLEM - General Chief Complaint: Genitourinary Problem Stated Complaint: URINARY RETENTION Time Seen by Provider: 03/13/18 19:32 Source of Information: Reports: Patient History Limitations: Reports: No Limitations - History of Present Illness INITIAL COMMENTS - FREE TEXT/NARRATIVE: Patient comes to ER with complaint of poor urination. Had lap hysterectomy and bladder sling yesterday. 5 abdominal incisions. Has had "dribbling" urine today. Feels like it is not emptying well. Reports suprapubic discomfort that has been increasing over the day. Surgery reportedly went well per patient. No fevers/chills. No emesis but has intermittent mild nausea. Has not had BM since surgery. Mild throat irritation/chest heaviness since waking from anesthesia. Feels a bit "puffy" in general. No significant weight change reported however. says that patient weighs self every day. He also says that patient has been told she has mild CHF in past. Treatments QUICK SERVICE TECHNICIAN: Reports: Other (see below) Other Treatments QUICK SERVICE TECHNICIAN: hydrocodone/acetaminophen at 1600 Abdominal Pain Score (Numeric/FACES): 6 - Related Data Allergies Allergy/AdvReac Type Severity Reaction Status Date / Time No Known Allergies Allergy Verified 03/13/18 19:16 Home Meds: Home Meds Acetaminophen 1,000 mg PO Q4H PRN 02/24/17 [History] Aspirin [Halfprin] 81 mg PO QPM 02/24/17 [History] Calcium Carbonate/Vitamin D3 [Calcium 600-Vit D3 400 Tablet] 2 tab PO DAILY 08/31 [History] Diazepam [Valium] 5 mg PO TID PRN 02/24/17 [History] Docusate Sodium [Colace] 100 mg PO BID 02/24/17 [History] Flaxseed Oil [Flaxseed] 1,000 mg PO DAILY 02/24/17 [History] Glucosamine/Chondro Gatica A [Glucosamine-Chondroitin Tab] 1 each PO DAILY 02/24/17 [History] Krill/Om-3/DHA/EPA/Phospho/Ast [Krill Oil 1,000 mg Softgel] 1 each PO DAILY 08/31 [History] Levothyroxine 175 mcg PO ACBRK 02/24/17 [History] PEG 400/Hypromellose/Glycerin [Artificial Tears Drops] 1 drop EYEBOTH Q6H PRN [History] Pregabalin [Lyrica] 75 mg PO BID 02/24/17 [History] Ubidecarenone [Co Q-10] 100 mg PO DAILY 02/24/17 [History] cycloSPORINE [Restasis] 1 drop EYEBOTH BID 02/24/17 [History] Cyanocobalamin (Vitamin B12) [Vitamin B12] 1,000 mcg IM Q30D sdv 03/06/17 [Rx] Docusate Sodium/Sennosides [Senna Plus] 2 tab PO BID #120 tablet 03/06/17 [Rx] oxyCODONE HCl [Oxycodone HCl] 10 mg PO Q4H PRN #45 tablet 03/06/17 [Rx] Amoxicillin 2,000 mg PO ASDIRECTED PRN 03/15/17 [History] Past Medical History Other HEENT History: dry eye syndrome, migraines Cardiovascular History: Reports: Heart Failure, Heart Murmur Gastrointestinal History: Reports: Chronic Constipation Musculoskeletal History: Reports: Back Pain, Chronic, Fibromyalgia, Osteoarthritis Other Musculoskeletal History: recent back surgery (02/15/2017) Endocrine/Metabolic History: Reports: Hypothyroidism Hematologic History: Reports: B12 Deficiency - Past Surgical History HEENT Surgical History: Reports: Oral Surgery, Tonsillectomy Other HEENT Surgeries/Procedures: three cornea transplants, parotid gland surgery, TMG joint surgery times three with replacement GI Surgical History: Reports: Appendectomy Female Surgical History: Reports: Hysterectomy, Tubal Ligation, Other (See Below) Other Female Surgeries/Procedures: laparoscopic hysterectomy with bladder repair on 03/12/18. 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 Denies: Fever, Chills, Malaise, Weakness , Fatigue, Night Sweats, Diaphoresis, Decreased Appetite, Weight Loss, Weight Gain HEENT: Reports: Other (throat irritation). Denies: Throat Swelling, Vertigo Respiratory: Reports: Other (chest feels "heavy" since waking up from surgery yesterday). Denies: Wheezing, Pleuritic Chest Pain, Cough, Sputum, Hemoptysis Cardiovascular: Denies: Chest Pain, Lightheadedness, Palpitations GI/Abdominal: Reports: Abdominal Pain (s/p abdominal surgery), Nausea. Denies: Difficulty Swallowing, Vomiting : Reports: Urinary Retention (dribbles/slow urination). Denies: Discharge, Dysuria, Flank Pain, Frequency, Hematuria, Pain, Urgency Musculoskeletal: Reports: No Symptoms Skin: Reports: Wound (5 surgical sites from instrumentation) Neurological: Reports: No Symptoms Psychiatric: Reports: No Symptoms ED EXAM, GI/ABD - Physical Exam Exam: See Below Exam Limited By: No Limitations General Appearance: Alert, WD/WN, No Apparent Distress Eyes: Bilateral: Normal Appearance, EOMI Ears: Normal External Exam Nose: Normal Inspection Throat/Mouth: Normal Inspection, Normal Lips, Normal Oropharynx, Normal Voice, No Airway Compromise Head: Atraumatic, Normocephalic Neck: Supple, Non-Tender Respiratory/Chest: No Respiratory Distress, Lungs Clear, Normal Breath Sounds, No Accessory Muscle Use, Chest Non-Tender Cardiovascular: Normal Peripheral Pulses, Regular Rate, Rhythm, No Edema, No Murmur GI/Abdominal Exam: Normal Bowel Sounds, Soft, Other (mild diffuse tenderness). No: Distended, Guarding, Rigid, Rebound (Female) Exam: Deferred Rectal (Female) Exam: Deferred Back Exam: Normal Inspection Extremities: Normal Inspection, Normal Range of Motion, Non-Tender, No Pedal Edema, Normal Capillary Refill, Pedal Edema (very mild, bilateral) Neurological: Alert, Oriented, Normal Cognition, Normal Gait, No Motor/Sensory Deficits Psychiatric: Normal Affect, Normal Mood Skin Exam: Warm, Dry, Wound/Incision (5 located around abdominal area) Course - Vital Signs Last Recorded V/S: Last Vital Signs Temp 37.5 C 03/13/18 19:10 Pulse 75 03/13/18 19:10 Resp 18 03/13/18 19:10 BP 117/67 03/13/18 19:10 Pulse Ox 96 03/13/18 19:10 - Orders/Labs/Meds Orders: Active Orders 24 hr Category Date Time Status Lema Catheter Insertion [Insert Urinary Catheter] [OM. Care 03/13/18 19:45 Ordered PC] Q24H RT Aerosol Therapy [RC] ASDIRECTED Care 03/13/18 21:17 Ordered Urinary Catheter Assessment [RC] ASDIRECTED Care 03/13/18 19:37 Active Abdomen Series w Chest 1V [CR] Stat Exams 03/13/18 19:47 Taken Labs: Laboratory Tests 03/13/18 03/13/18 03/13/18 Range/Units 19:50 19:55 19:55 WBC 11.0 H (4.0-10.2) K/uL RBC 3.78 (3.77-5.09) M/uL Hgb 11.5 L D (11.7-15.5) g/dL Hct 34.8 (34.0-46.0) % MCV 92.1 (84.0-98.0) fL MCH 30.4 (28.2-33.3) pg MCHC 33.0 (31.7-36.0) g/dL RDW 13.1 (11.2-14.1) % Plt Count 206 D (150-350) K/uL Neut % (Auto) 71.8 (45.0-80.0) % Lymph % (Auto) 18.9 (10.0-50.0) % [place] % (Auto) 5.9 (2.0-14.0) % Eos % (Auto) 3.3 (0.0-5.0) % Baso % (Auto) 0.1 (0.0-2.0) % Neut # (Auto) 7.88 H (1.40-7.00) K/uL Lymph # (Auto) 2.07 (0.50-3.50) K/uL [place] # (Auto) 0.65 (0.00-1.00) K/uL Eos # (Auto) 0.36 (0.00-0.50) K/uL Baso # (Auto) 0.01 (0.00-0.20) K/uL Sodium 132 L (136-145) mmol/L Potassium 3.8 (3.5-5.1) mmol/L Chloride 99 (98-107) mmol/L Carbon Dioxide 29.1 (21.0-32.0) mmol/L BUN 11 (7-18) mg/dL Creatinine 0.87 (0.51-1.17) mg/dL Est Cr Clr Drug Dosing 49.50 mL/min Estimated GFR (MDRD) > 60 mL/min Glucose 99 (74-106) mg/dL Calcium 8.5 (8.5-10.1) mg/dL Total Bilirubin 0.5 (0.2-1.0) mg/dL AST 21 (15-37) U/L ALT 17 (12-78) U/L Alkaline Phosphatase 65 (46-116) IU/L NT-Pro-B Natriuret Pep 480 H (0-125) pg/mL Total Protein 6.3 L (6.4-8.2) g/dL Albumin 3.0 L (3.4-5.0) g/dL Specimen Type Urincath Urine Color Light yellow Urine Appearance Clear Urine pH 6.0 (5.0-9.0) Ur Specific [place] <= 1.005 (1.005-1.030) Urine Protein Negative (NEGATIVE) mg/dL Urine Glucose (UA) Negative (NEGATIVE) mg/dL Urine Ketones Negative (NEGATIVE) mg/dL Urine Occult Blood Moderate H (NEGATIVE) Urine Nitrite Negative (NEGATIVE) Urine Bilirubin Negative (NEGATIVE) Urine Urobilinogen 0.2 (0.2-1.0) E.U./dL Ur Leukocyte Esterase Negative (NEGATIVE) Urine RBC 0-5 /HPF Urine WBC Not seen /HPF Ur Epithelial Cells Not seen /LPF Urine Bacteria Not seen (NONE TO FEW) /HPF Meds: Medications Discontinued Medications Generic Name Dose Route Start Last Admin Trade Name Freq PRN Reason Stop Dose Admin Albuterol/Ipratropium 3 ml 03/13/18 21:17 03/13/18 21:35 Duoneb 3.0-0.5 Mg/3 Ml NEB 03/13/18 21:18 3 ml ONETIME ONE Administration - Radiology Interpretation Free Text/Narrative:: Abdominal series with 1v chest: No infiltrates noted. Air under both diaphragms as would be expected after lap surgery. No signs of obstruction/volvulus. - Re-Assessments/Exams Free Text/Narrative Re-Assessment/Exam: 1500 ml of urine obtained after Lema placed. Patient felt significantly improved. WBC mildly above normal. Likely secondary to yesterday's surgery. No noted pneumonia/UTI. Patient complained of having throat irritation and slight heaviness with breathing, and thought it was due to the anesthesia yesterday. [place] much improved after DuoNeb. Does have history mild CHF. To continue daily weights. No lasix given at this time due to current urinary complaint. If patient notes weight gain over the weekend she is to follow up at ER for re-evaluation. Departure - Departure Time of Disposition: 22:30 Disposition: Home, Self-Care 01 Condition: Good Clinical Impression: Postoperative urinary retention, Hyponatremia - Discharge Information Instructions: Hyponatremia, [id number], Acute Urinary Retention, Female, Easy -to-Read Referrals: Francisco Tierney MD [Primary Care Provider] - Forms: ED Department Discharge Additional Instructions: See how your symptoms are over the next 24 hours. If things do not improve then return for re-evaluation and consideration of an indwelling lema catheter for several days. Suspect that you have mild issues with congestive heart failure based on your labs. Follow up with your primary provider and discuss if you need to have any medication adjustments. Weigh yourself daily. If you note an increase in weight over 4-5 pounds then return to be evaluated. We will avoid giving you Lasix tonight given your current urinary issues. As discussed, it is normal to have throat irritation and feel a heaviness in your chest/breathing after having general anesthesia. However, if you notice increasing shortness of breath please return to the ER for re-evaluation. Your sodium level was a little low. Refer to the handout you were given regarding hyponatremia. OK to put some extra salt on your food. Follow up with your primary provider and get level rechecked in a week. Also noted that your protein and albumin levels were a bit low. Please review that/dietary modifications with your provider. - My Orders Last 24 Hours: My Active Orders 03/13/18 19:37 Urinary Catheter Assessment [RC] ASDIRECTED 03/13/18 19:45 Lema Catheter Insertion [Insert Urinary Catheter] [OM.PC] Q24H 03/13/18 19:47 Abdomen Series w Chest 1V [CR] Stat 03/13/18 21:17 RT Aerosol Therapy [RC] ASDIRECTED - Assessment/Plan Last 24 Hours: My Active Orders 03/13/18 19:37 Urinary Catheter Assessment [RC] ASDIRECTED 03/13/18 19:45 Lema Catheter Insertion [Insert Urinary Catheter] [OM.PC] Q24H 03/13/18 19:47 Abdomen Series w Chest 1V [CR] Stat 03/13/18 21:17 RT Aerosol Therapy [RC] ASDIRECTED
== END 2018-03-13 22:55 | disposition home or self-care (01) ==
LOC: LL.ED 19:09
DX: R33.8 Other retention of urine (principal); I50.9 Heart failure, unspecified; E87.1 Hypo-osmolality and hyponatremia; Z79.82 Long term (current) use of aspirin; Z79.899 Other long term (current) drug therapy
CPT/HCPCS: 36415; 51702; 74022; 80053; 81001; 83880; 85025; 94640; 99284

== ENCOUNTER 2024-04-30 09:23 | Emergency (ER) | payer MEDICARE, OTHER ==
[2024-04-30 10:05] LABS: BASOPHILS ABSOLUTE AUTO 0.03 K/uL (0.00-0.20); BASOPHILS PERCENT AUTO 0.5 % (0.0-2.0); EOSINOPHILS ABSOLUTE AUTO 0.38 K/uL (0.00-0.50); EOSINOPHILS PERCENT AUTO 6.3 % (0.0-5.0); HEMATOCRIT 36.7 % (34.0-46.0); HEMOGLOBIN 11.9 g/dL (11.7-15.5); LYMPHOCYTES ABSOLUTE AUTO 2.13 K/uL (0.50-3.50); LYMPHOCYTES PERCENT AUTO 35.1 % (10.0-50.0); MEAN CORPUSCULAR HEMOGLOBIN 29.8 pg (28.2-33.3); MEAN CORPUSCULAR HGB CONC 32.4 g/dL (31.7-36.0); MONOCYTES ABSOLUTE AUTO 0.59 K/uL (0.00-1.00); MONOCYTES PERCENT AUTO 9.7 % (2.0-14.0); NEUTROPHILS ABSOLUTE AUTO 2.94 K/uL (1.40-7.00); NEUTROPHILS PERCENT AUTO 48.4 % (45.0-80.0); PLATELET COUNT,PLT 246 K/uL (150-350); RED BLOOD CELL COUNT 3.99 M/uL (3.77-5.09); RED CELL DISTRIBUTION WIDTH 13.2 % (11.2-14.1); WHITE BLOOD CELL COUNT,WBC 6.1 K/uL (4.0-10.2)
[2024-04-30] MEDS: methylPREDNISolone Sodium Succinate 40 MG/1 ML SDV IVPUSH ONE (10:05)
[2024-04-30] MEDS: Sodium Chloride 0.9% 10 ML Syringe FLUSH PRN (10:05)
[2024-04-30 10:20] LABS: SEDIMENTATION RATE AUTO 11 mm/hr (0-30)
[2024-04-30 10:28] LABS: ALANINE AMINOTRANSFERASE,ALT 19 U/L (12-78); ALBUMIN 3.2 g/dL (3.4-5.0); ALKALINE PHOSPHATASE 89 IU/L (46-116); ANION GAP 7.6 meq/L (7-15); ASPARTATE AMNIOTRANSFERASE,AST 25 U/L (15-37); BILIRUBIN TOTAL 0.5 mg/dL (0.2-1.0); BLOOD UREA NITROGEN,BUN 16 mg/dL (7-18); CALCIUM 8.5 mg/dL (8.5-10.1); CARBON DIOXIDE,CO2 29.4 mmol/L (21.0-32.0); CHLORIDE,CL 105 mmol/L (98-107); CREATININE 0.97 mg/dL (0.51-1.17); GLUCOSE RANDOM 85 mg/dL (70-99); POTASSIUM,K 4.1 mmol/L (3.5-5.1); PROTEIN TOTAL,TP 6.7 g/dL (6.4-8.2); SODIUM,NA 142 mmol/L (136-145)
[2024-04-30 10:29] LABS: C-REACTIVE PROTEIN < 0.05 mg/dL (0.05-0.30); ESTIMATED GFR 58 mL/min (>=60)
[2024-04-30] MEDS: valACYclovir 1,000 MG Tab PO ONE (11:39)
[2024-04-30] MEDS: Take Home: valACYclovir HCl 1 GM Tab, 6 Tab Pack PO ONE (11:39)
[2024-04-30 12:51] VITALS: BP 128/87; PULSE 75
== END 2024-04-30 11:50 | disposition home or self-care (01) ==
LOC: LL.ED 09:23
DX: G51.0 Bell's palsy (principal); Q07.9 Congenital malformation of nervous system, unspecified; I50.9 Heart failure, unspecified; E03.9 Hypothyroidism, unspecified; Z90.710 Acquired absence of both cervix and uterus; Z79.82 Long term (current) use of aspirin; Z79.899 Other long term (current) drug therapy
CPT/HCPCS: 36415; 70450; 80053; 85025; 85652; 86140; 96374; 99284-25; A9270-GY; J2919; J3490

== ENCOUNTER 2024-09-24 16:41 | Emergency (ER) | payer MEDICARE, OTHER ==
[2024-09-24 16:48] VITALS: BP 135/77; PULSE 62
== END 2024-09-24 18:10 | disposition home or self-care (01) ==
LOC: LL.ED 16:41
DX: S93.402A Sprain of unspecified ligament of left ankle, initial encounter (principal); S00.83XA Contusion of other part of head, initial encounter; I50.9 Heart failure, unspecified; E03.9 Hypothyroidism, unspecified; Z90.49 Acquired absence of other specified parts of digestive tract; Z90.710 Acquired absence of both cervix and uterus; Z79.890 Hormone replacement therapy; Z79.899 Other long term (current) drug therapy; W19.XXXA Unspecified fall, initial encounter
CPT/HCPCS: 70450; 73610-LT; 99284